=== PATIENT | male | born 1980 | race Caucasian/White ===

== ENCOUNTER 2017-01-11 20:19 | Inpatient (IN) | payer MEDICAID, OTHER ==
[~2017-01-11] VITALS: Ht 177.8 cm; Wt 73.4 kg
[2017-01-11 20:53] LABS: BASOPHILS % (AUTO) 0.4 % (0.0-2.0); EOSINOPHILS % (AUTO) 1.7 % (1.0-6.0); HEMOGLOBIN 13.2 g/dL (13.5-17.5); LYMPHOCYTES # (AUTO) 2.1 K/uL (1.0-4.8); LYMPHOCYTES % (AUTO) 24.7 % (22.0-44.0); MEAN CORPUSCULAR HEMOGLOBIN 29.9 pg (26.0-34.0); MEAN CORPUSCULAR HGB CONC 33.8 G/dL (31.0-37.0); MEAN CORPUSCULAR VOLUME 89 fL (80-100); MONOCYTES # (AUTO) 0.5 K/uL (0.1-1.0); MONOCYTES % (AUTO) 6.3 % (2.0-9.0); NEUTROPHILS # (AUTO) 5.7 K/uL (1.8-7.7); NEUTROPHILS % (AUTO) 66.9 % (40.0-70.0); PLATELET COUNT (AUTO) 285 K/uL (150-450); RED CELL DISTRIBUTION WIDTH 13.5 % (11.5-14.5)
[2017-01-11 21:00] LABS: ANION GAP 13 mmol/L (8-16); CALCIUM, TOTAL 8.9 mg/dL (8.8-10.5); CARBON DIOXIDE 25 mmol/L (22-29); CHLORIDE 100 mmol/L (98-107); CREATININE 1.03 mg/dL (0.60-1.30); GLOMERULAR FILTR. RATE CALC > 60 mL/min (>60); GLUCOSE,RANDOM 115 mg/dL (70-110); POTASSIUM 3.2 mmol/L (3.5-5.1); SODIUM SERUM 138 mmol/L (136-145); UREA NITROGEN, BLOOD 10 mg/dL (7-18)
[2017-01-11 21:02] LABS: ALANINE AMINOTRANSFERASE 33 U/L (12-78); ALBUMIN 4.1 g/dL (3.4-5.0); ALKALINE PHOSPHATASE 67 U/L (46-116); ASPARTATE AMINOTRANSFERASE 28 U/L (15-37); BILIRUBIN,TOTAL 0.5 mg/dL (0.1-1.0); TOTAL PROTEIN, SERUM 7.6 g/dL (6.4-8.2)
[2017-01-11 23:42] LABS: AMPHET/METH SCREEN,URINE NEGATIVE (NEGATIVE); BARBITURATE SCREEN, URINE NEGATIVE (NEGATIVE); BENZODIAZEPINES SCREEN,URINE NEGATIVE (NEGATIVE); CANNABINOID SCREEN,URINE POSITIVE (NEGATIVE); COCAINE SCREEN,URINE NEGATIVE (NEGATIVE); METHADONE SCREEN, URINE NEGATIVE (NEGATIVE); OPIATE SCREEN,URINE NEGATIVE (NEGATIVE)
[2017-01-11 23:52] LABS: PHENCYCLIDINE SCREEN,URINE NEGATIVE (NEGATIVE)
[2017-01-12] MEDS: POTASSIUM CHLORIDE 20 MEQ ER TABLET PO ONE ×2 (02:00→02:04)
[2017-01-12] MEDS ORDERED: HALOPERIDOL 5 MG TABLET PO PRN (04:30)
[2017-01-12] MEDS ORDERED: ZOLPIDEM TARTRATE 10 MG TABLET PO PRN (04:30)
[2017-01-12] MEDS ORDERED: LORazepam 2 MG TABLET PO PRN (04:30)
[2017-01-12] MEDS ORDERED: LOPERAMIDE HCL 2 MG CAPSULE PO PRN (07:45)
[2017-01-12] MEDS ORDERED: ALBUTEROL SULFATE HFA 90 MCG/PUFF 8 GM INHALER IH PRN (07:45)
[2017-01-12] MEDS ORDERED: ACETAMINOPHEN 325 MG TABLET PO PRN (07:45)
[2017-01-12] MEDS ORDERED: CloNIDine HCL 0.1 MG TABLET PO PRN (07:45)
[2017-01-12] MEDS ORDERED: BACITRACIN 28.4 GM OINTMENT TP PRN (07:45)
[2017-01-12] MEDS ORDERED: MAG HYDROX/AL HYDROX/SIMETH ES 30 ML SUSPENSION UDCUP PO PRN (07:45)
[2017-01-12] MEDS ORDERED: IBUPROFEN 600 MG TABLET PO PRN (07:45)
[2017-01-12] MEDS ORDERED: ONDANSETRON HCL 4 MG TABLET PO PRN (07:45)
[2017-01-12] MEDS ORDERED: PETROLATUM,WHITE 71 GM JELLY TP PRN (07:45)
[2017-01-12] MEDS ORDERED: MAGNESIUM HYDROXIDE SUSPENSION 30 ML UDCUP PO PRN (07:45)
[2017-01-12] MEDS ORDERED: BENZOCAINE/MENTHOL LOZENGE [8 LOZENGES/PACKET] MM PRN (08:00)
[2017-01-12 09:00] VITALS: BP 155/98
[2017-01-12 16:30] VITALS: BP 119/61
[2017-01-12] MEDS: OLANZapine 5 MG TABLET PO SCH (20:58)
[2017-01-13 01:20] VITALS: BP 157/100
[2017-01-13 06:28] LABS: POTASSIUM 3.7 mmol/L (3.5-5.1); THYROID STIMULATING HORMONE 2.81 uIU/mL (0.36-3.74)
[2017-01-13 08:30] VITALS: BP 107/68
[2017-01-13] MEDS ORDERED: HALOPERIDOL LACTATE 5 MG/ML VIAL ONE (09:04)
[2017-01-13] MEDS ORDERED: DiphenhydrAMINE HCL 50 MG/ML VIAL ONE (09:05)
[2017-01-13] MEDS ORDERED: DiphenhydrAMINE HCL 50 MG/ML VIAL IM ONE (09:15)
[2017-01-13] MEDS ORDERED: HALOPERIDOL LACTATE 5 MG/ML VIAL IM ONE (09:15)
[2017-01-13] MEDS: OLANZapine 5 MG TABLET PO SCH ×2 (09:58→20:03)
[2017-01-13 16:00] VITALS: BP 128/74
[2017-01-14 06:03] VITALS: BP 163/107
[2017-01-14] MEDS: OLANZapine 5 MG TABLET PO SCH ×2 (09:21→21:40)
[2017-01-14 11:15] VITALS: BP 149/98
[2017-01-14 11:34] LABS: GLUCOMETER DEV NAME(LOC) 3EI B; GLUCOSE,POINT OF CARE 277 MG/DL (70-110)
[2017-01-14 20:42] VITALS: BP 137/55
[2017-01-15 04:12] VITALS: BP 143/95
[2017-01-15 08:15] VITALS: BP 150/100
[2017-01-15] MEDS: OLANZapine 5 MG TABLET PO SCH (09:43)
[2017-01-15 17:00] VITALS: BP 145/90
[2017-01-15] MEDS: OLANZapine 10 MG TABLET PO SCH (21:33)
[2017-01-16 05:22] VITALS: BP 134/91
[2017-01-16] MEDS: OLANZapine 10 MG TABLET PO SCH (08:11)
[2017-01-16] MEDS ORDERED: OLAN10TA3 PO (10:15)
== END 2017-01-16 11:20 | disposition home or self-care (01) | DRG 750 ==
LOC: EMS 20:21 → 3EI 01-12 02:15
PROVIDERS: ADMIT Psychiatry & Neurology Child & Adolescent Psychiatry; ATTEND Psychiatry & Neurology Child & Adolescent Psychiatry
DX: F25.1 Schizoaffective disorder, depressive type (principal); R45.851 Suicidal ideations; Z78.1 Physical restraint status; E87.6 Hypokalemia; F12.90 Cannabis use, unspecified, uncomplicated; E66.9 Obesity, unspecified; R03.0 Elevated blood-pressure reading, without diagnosis of hypertension; R73.9 Hyperglycemia, unspecified; F17.200 Nicotine dependence, unspecified, uncomplicated; Z68.23 Body mass index [BMI] 23.0-23.9, adult
CPT/HCPCS: 82306; 82962; 83036; 84132; 84443; 99285; G0480; J1200; J1630